=== PATIENT | female | born 1980 | race Caucasian/White ===

== ENCOUNTER 2018-03-21 08:37 | Inpatient (IN) ==
[2018-03-21] MEDS ORDERED: CeFAZolin Syr 2,000MG/20 ML 2,000 MG/20 ML SYRINGE IVPB ONE (08:53)
[2018-03-21] MEDS ORDERED: Albuterol 2.5 MG/3 ML NEBULIZER IH ONE (08:53)
[2018-03-21] MEDS ORDERED: Ringers Solution, Lactated 1,000 ML IVC SCH (09:00)
[2018-03-21] MEDS ORDERED: Famotidine 20 MG/2 ML VIAL IVP ONE (09:04)
[2018-03-21] MEDS ORDERED: Celecoxib 100 MG CAPSULE PO ONE (09:05)
[2018-03-21] MEDS ORDERED: Acetaminophen IV 1,000 MG/100 ML INFUS..BTL IVPB ONE (09:05)
[2018-03-21] MEDS ORDERED: *HR* Midazolam HCl 2 MG/2 ML VIAL ONE (09:21)
[2018-03-21] MEDS ORDERED: *HR* FentaNYL (PF) 100 MCG/2 ML VIAL ONE ×2 (09:21→11:22)
[2018-03-21] MEDS ORDERED: *HR* Propofol 200 MG/20 ML VIAL IVP ONE (09:22)
--- NOTE | 2018-03-21 09:32 | Anesthesia Evaluation PreOp ---
Date of Encounter: 03/21/18 Time of Encounter: 09:30 - Past History Planned Operation: ALEC Open Cardiac History: HTN, Hyperlipidemia, Other (Bicuspid Valve with mild-moderate aortic Stenosis, no regurge) Pulmonary History: Smoker CURRICULUM ASSISTANT History: Denies Any Significant HX Other Medical History: GERD Anesthesia History: No Prior Anesthetic Complications, Past Anesthesia (C- Section under SAB, no problems) : No Test: Negative Alcohol Use: occasionally Drug use: marijuana Medications and Allergies Cetirizine HCl [Cetirizine HCl] 10 mg PO DAILY 03/21/18 [History] Ibuprofen [Ibu-200] 200 mg PO Q8H PRN 03/21/18 [History] Lisinopril [Zestril] 10 mg PO DAILY 03/21/18 [History] Multivitamin [One Daily Essential] 1 tab PO DAILY 03/21/18 [History] OLANZapine [Zyprexa] 2.5 mg PO DAILY 03/21/18 [History] Omeprazole [PriLOSEC] 20 mg PO DAILY 03/21/18 [History] Venlafaxine XR (24 HR) [Effexor Xr] 37.5 mg PO DAILY 03/21/18 [History] 3 Allergy/AdvReac Type Severity Reaction Status Date / Time No Known Allergies Allergy Verified 03/21/18 09:00 - Meds/Allergy Pre-op Review Medications Reviewed: Yes Allergies Reviewed: Yes Beta Blockers on Current Med List: No Anesthesia Results - Labs Laboratory Tests 03/14/18 03/14/18 03/14/18 16:34 16:34 16:34 Hgb 13.6 Hct 39.2 Plt Count 267 PT 11.8 INR 1.0 APTT 32.0 Sodium 136 Potassium 3.7 BUN 15 Creatinine 0.86 Serum , Qual 03/14/18 16:34 Hgb Hct Plt Count PT INR APTT Sodium Potassium BUN Creatinine Serum , Qual Negative - Imaging EKG: report reviewed (SR, incomplete Rt BBB) Anesthesia Exam O2 Sat Height 1.65 m Height 1.65 m Height 1.65 m Weight 76.657 kg Weight 76.657 kg Weight 76.657 kg O2 Sat by Pulse Oximetry 97 O2 Sat by Pulse Oximetry 97 Vital Signs Temp Pulse Resp BP Pulse Ox 98.5 F 78 18 123/85 97 03/21/18 08:56 03/21/18 08:56 03/21/18 08:56 03/21/18 08:56 03/21/18 08:56 Height: 5'5 Weight: 169 lbs NPO (# of Hours): MN - HEENT Pupil (Motor): Pupils equal, EOMI Mallampati: II Teeth: Normal Oral Opening: Greater than 3 - CURRICULUM ASSISTANT LOC: Oriented CURRICULUM ASSISTANT Motor: Normal RUE, Normal LUE, Normal RLE, Normal LLE, Normal Face CURRICULUM ASSISTANT Sensory: Normal: RUE, LUE, RLE, LLE, Face - Cardiac Rhythm: Regular Murmur: None JVD: No Carotid Bruit: No - Pulmonary Breath Sounds: bilateral Clear Respiratory Effort: Symmetrical Anesthesia Assess/Plan ASA Score: 2 Modified Charlotte Scale for Level of Consciousness: Cooperative, oriented, and tranquil Anesthetic Plan: General, Regional Monitoring Plan: Standard Monitors Recovery Plan: PACU (Discussed GA, Duramorph Spinal, agrees to proceed)
[2018-03-21] MEDS ORDERED: *HR* Promethazine 25 MG/ML VIAL IVP PRN (09:40)
[2018-03-21] MEDS ORDERED: Dexamethasone 4 MG/ML VIAL IVP ONE (09:40)
[2018-03-21] MEDS ORDERED: Ondansetron 4 MG/2 ML VIAL IVP ONE (09:40)
[2018-03-21] MEDS ORDERED: *HR* Labetalol 20 MG/4 ML SYRINGE IVP PRN (09:40)
[2018-03-21] MEDS ORDERED: Lidocaine -MPF 2% 2 ML VIAL ONE (09:42)
[2018-03-21] MEDS ORDERED: *HR* Rocuronium Bromide 50 MG/5 ML VIAL ONE (09:42)
[2018-03-21] MEDS ORDERED: *HR* Belladonna Alkaloids/Opium 30 MG RECTAL SUPPOSITORY RC ONE (10:33)
[2018-03-21] MEDS ORDERED: Bupivacaine/EPI 1:200k 0.25%PF 30 ML VIAL ONE (10:33)
[2018-03-21] MEDS ORDERED: Morphine Sulfate/PF 5mg/10mL Vial ONE (10:34)
[2018-03-21] MEDS ORDERED: Bupivacaine-MPF 0.25% 10 ML VIAL ONE (10:35)
--- NOTE | 2018-03-21 10:35 | History & Physical Report ---
Date of Encounter: 03/21/18 Time of Encounter: 10:33 24 Hour HP Update - Instructions Instructions: If the History and Physical is less than 30 days old and was completed prior to A.M. admission and or procedure and has NOT been updated on calendar day of procedure please complete this update prior to performing procedure. - Update Patient reports changes in Medical Condition: No Changes in examination, assessment, or condition: No Changes in Medication: No Preop tests/diagnostics Reviewed: Yes Surgery Remains Indicated: Yes Consent for Planned Operative Procedure(s) Verified: Yes - Pre-Operative Checklist Preoperative Checklist Indicated: Yes Prophylactic Antibiotic Ordered: Yes Home Medications Include Beta Rei: No Beta Rei Taken Today (Day of Surgery): No Beta Rei Taken Yesterday (Day Prior to Surgery): No Is VTE Prophylaxis Indicated?: Yes - Attending Attestation ese yates md facog
[2018-03-21] MEDS ORDERED: Lidocaine -MPF 1% 5 ML AMPUL ONE (11:21)
[2018-03-21] MEDS ORDERED: Naloxone 0.4 MG/ML INJ IVP PRN ×2 (11:25→13:16)
--- NOTE | 2018-03-21 11:25 | Anesthesia Procedures ---
Date of Encounter: 03/21/18 Time of Encounter: 09:30 Procedures: Anesthesia - Epidural/Spinal Patient ID/Chart reviewed: Yes Patient examined: Yes Supplemental Oxygen: None/Room Air Sedation: Versed (mg): 2 Site Prep: Aseptic Technique, Sterile prep and drape Patient position: upright Local Anesthetic: Lidocaine 1% Interspace Used: L4-L5 Blood: No CSF: Yes Paresthesia: No Spinal Needle Gauge: 24 Spinal Dose: Duramorph 250 micrograms Procedure: Pateint sitting, midline, tolerated procedure well Vitals + FHT's: Vital Signs/O2 Sat/Glucose, Most Current Temp Pulse Resp BP Pulse Ox 03/21/18 09:13 18 97 03/21/18 08:56 98.5 F 78 18 123/85 97
[2018-03-21] MEDS ORDERED: *HR* HYDROmorphone (PF) 1 MG/ML SYRINGE ONE (11:51)
[2018-03-21] MEDS ORDERED: Neostigmine Methylsulfate 3 MG/3 ML SYRINGE ONE (12:06)
--- NOTE | 2018-03-21 12:24 | OB/GYN Procedure Note ---
Hysterectomy - Diagnosis Date of procedure: 03/21/18 Hysterectomy pre-op: abnormal uterine bleeding, symptomatic leiomyomata Post-op diagnosis: same - Procedure Hysterectomy procedure: total abdominal hysterectomy, bilateral salpingectomy Surgeon: Kaz Zepeda Was there an hotel assistant manager present: Yes Template Worker: Fallon Duran Anesthesia provider: Mal Shrestha Anesthesia Type: General (Intrathecal) Estimated blood loss (cc): 100 Complications: none Urine output (cc): 300 Specimens: uterus, cervix, right fallopian tube, left fallopian tube Findings: Tubes were consistent with previous tubal sterilization. Ovaries appeared be normal. There is a fundal fibroid noted. Disposition: PACU Narrative: Patient taken to operating room. After satisfactory anesthesia was achieved, patient placed in supine position Jaime catheter inserted and prepped and draped in usual manner. After appropriate timeout was obtained, the abdomen was entered through standard Maylard incision. The Mayela retractor was placed. Uterus grasped on either side with Wes clamps. Fallopian tubes were resected and sent to pathology for analysis. Mesovarium ligaments coagulated on both sides and cut round ligaments coagulated on both sides and cut bladder flap was created anteriorly with sharp and blunt dissection. Uterine arteries were coagulated both sides and cut. Cardinal ligament pedicles were coagulated both sides and cut. Uterosacral ligaments were clamped cut suture-ligated with 0 Monocryl. The vagina was entered posteriorly. Cervix and uterus were resected and sent to pathology for analysis. Cuff was closed with 0 Monocryl. After assurance of hemostasis, peritoneum was reapproximated over the cuff with a 0 Monocryl. The ovaries were suspended to the round ligament on either side with 0 Vicryl. After assurance hemostasis, the packs and retractor was removed. The abdomen was closed standard fashion using 0 Vicryl on the fascia and 3-0 Monocryl in the skin. Sterile dressing was applied. Jaime catheter was removed. Patient did well was taken to recovery in satisfactory condition. Counts were correct.
[2018-03-21] MEDS: *HR* HYDROmorphone (PF) 1 MG/ML SYRINGE IVP PRN ×2 (12:50→13:03)
[2018-03-21] MEDS ORDERED: Ondansetron 4 MG/2 ML VIAL IVP PRN (13:16)
[2018-03-21] MEDS ORDERED: Sennosides 8.6 MG TABLET PO PRN (13:16)
--- NOTE | 2018-03-21 13:27 | Anesthesia Evaluation Post Op ---
Date of Encounter: 03/21/18 Time of Encounter: 13:26 - Vital Signs Vital Signs: Vital Signs/O2 Sat, Most Current Temp Pulse Resp BP Pulse Ox 98.6 F 60 16 137/93 96 03/21/18 13:14 03/21/18 13:14 03/21/18 13:14 03/21/18 13:14 03/21/18 13:14 - Lungs Lungs: Clear Ascult./Percussion - Airway Airway: Non-obstructed - Cardiovascular Regular Rate - Mental Status Mental Status: Asleep with brisk response to light stimulation - Pain Pain Scale: 0 Pain Scale used: Numeric (1 - 10) - Nausea Vomiting Nausea Vomiting: Not Present - Hydration Hydration: NPO, Has not voided - Discharge PostOp Status: Transfer Patient to floor
[2018-03-21] MEDS ORDERED: Acetaminophen IV 1,000 MG/100 ML INFUS..BTL IVPB SCH (18:00)
[2018-03-21] MEDS: *HR* OxyCODONE/APAP 5/325 TABLET PO PRN (19:36)
[2018-03-22] MEDS: *HR* OxyCODONE/APAP 5/325 TABLET PO PRN ×3 (00:02→08:15)
[2018-03-22 05:58] LABS: Basophils # 0.1 K/mcL (0.0-0.2); Basophils % 0.3 %; Eosinophils % 0.1 %; Hematocrit 34.6 % (35.3-44.9); Hemoglobin 11.8 g/dL (11.5-15.4); Immature Granulocytes % 0.4 % (0-4); Lymphocytes # 2.8 K/mcL (0.6-4.6); Mean Corpuscular HGB Conc 34.1 g/dL (31.6-35.5); Mean Platelet Volume 10.1 fL (9.4-12.4); Monocytes # 1.2 K/mcL (0.0-1.3); Monocytes % 7.1 %; Neutrophils # 13.3 K/mcL (1.6-8.9); Platelet Count 249 K/mcL (140-400); Red Blood Count 3.93 M/mcL (3.82-4.97); Red Cell Distribution Width 12.5 % (11.5-14.5); Segmented Neutrophils % 76.1 %
[2018-03-22 06:16] LABS: eGFR For Non-African Americans > 60 (> 60)
[2018-03-22 07:26] VITALS: BP 107/70
[2018-03-22] MEDS ORDERED: Loratadine 10 MG TABLET PO SCH (09:00)
[2018-03-22] MEDS ORDERED: OLANZapine 5 MG TAB.RAPDIS PO SCH (09:00)
[2018-03-22] MEDS ORDERED: Venlafaxine XR (24 HR) 37.5 MG CAP.ER.24H PO SCH (09:00)
--- NOTE | 2018-03-22 09:28 | Discharge Summary ---
Date of Encounter: 03/22/18 Time of Encounter: 09:27 - Discharge Diagnosis (1) Fibroid uterus Priority: Primary Status: Resolved Qualifiers: Uterine leiomyoma location: intramural Qualified Code(s): D25.1 - Intramural leiomyoma of uterus (2) Uterus, adenomyosis Priority: Secondary Status: Resolved (3) Post-op pain Priority: Secondary Status: Acute - Discharge Medications Prescriptions: OxyCODONE/APAP 5/325 [Percocet 5/325 MG] 1 each PO Q4HR PRN 7 Days #28 tablet PRN Reason: Severe Pain (7-10) Home Medications: Cetirizine HCl [Cetirizine HCl] 10 mg PO DAILY 03/21/18 [History] Ibuprofen [Ibu-200] 200 mg PO Q8H PRN 03/21/18 [History] Lisinopril [Zestril] 10 mg PO DAILY 03/21/18 [History] Multivitamin [One Daily Essential] 1 tab PO DAILY 03/21/18 [History] OLANZapine [Zyprexa] 2.5 mg PO DAILY 03/21/18 [History] Omeprazole [PriLOSEC] 20 mg PO DAILY 03/21/18 [History] Venlafaxine XR (24 HR) [Effexor Xr] 37.5 mg PO DAILY 03/21/18 [History] OxyCODONE/APAP 5/325 [Percocet 5/325 MG] 1 each PO Q4HR PRN 7 Days #28 tablet [Rx] Allergies/Adverse Reactions: 3 Allergy/AdvReac Type Severity Reaction Status Date / Time No Known Allergies Allergy Verified 03/21/18 09:00 Data Procedures and tests throughout hospitalization: Laboratory Tests 03/22/18 03/22/18 05:43 05:43 WBC 17.4 H RBC 3.93 Hgb 11.8 Hct 34.6 L MCV 88.0 MCH 30.0 MCHC 34.1 RDW 12.5 Plt Count 249 MPV 10.1 Immature Gran % 0.4 Seg Neutrophils % 76.1 Lymphocytes % 16.0 Monocytes % 7.1 Eosinophils % 0.1 Basophils % 0.3 Neutrophils # 13.3 H Lymphocytes # 2.8 Monocytes # 1.2 Eosinophils # 0.0 Basophils # 0.1 Creatinine 0.74 Est GFR ( Amer) > 60 Est GFR (Non-Af Amer) > 60 Labs on day of discharge: Labs from last 24 hours 03/22/18 03/22/18 05:43 05:43 WBC 17.4 H RBC 3.93 Hgb 11.8 Hct 34.6 L MCV 88.0 MCH 30.0 MCHC 34.1 RDW 12.5 Plt Count 249 MPV 10.1 Immature Gran % 0.4 Seg Neutrophils % 76.1 Lymphocytes % 16.0 Monocytes % 7.1 Eosinophils % 0.1 Basophils % 0.3 Neutrophils # 13.3 H Lymphocytes # 2.8 Monocytes # 1.2 Eosinophils # 0.0 Basophils # 0.1 Creatinine 0.74 Est GFR ( Amer) > 60 Est GFR (Non-Af Amer) > 60 Date of admission: 03/21/18 13:15 Primary care physician: Chemo Kearns - Patient Status Disposition: Home, Self-Care Condition: Good Functional capacity at discharge: independent ambulation Overall status at discharge: patient is progressing back to baseline - Discharge Instructions Follow Up With: Chemo Kearns, [Primary Care Provider] - - Diet and Activity Activity: increase activity as tolerated Diet: advance to your usual diet Hospital [employer] Time Attestation: Total time spent providing and/or coordinating discharge services: Exam - Constitutional Vitals: Temp Pulse Resp BP Pulse Ox 98.0 F 68 14 107/70 97 03/22/18 07:10 03/22/18 07:10 03/22/18 07:10 03/22/18 07:10 03/22/18 07:10 General appearance IM: A&O X 3 - Respiratory Respiratory exam: Present: CTAB - Cardiovascular Cardiovascular exam IM: Present: RRR - GI/Abdominal GI/Abdominal exam IM: diminished bowel sounds, soft Incision: normal, dry, intact - Extremities Exam Extremities exam IM: Present: full ROM - Neurological Exam Neurological exam: CN II-XII intact - VTE Documentation of Mechanical Device: Graduated compression elastic hosiery - Attending Attestation ese yates md facog
== END 2018-03-22 11:00 | disposition home or self-care (01) | DRG 519 ==
LOC: SAMDAY 08:37 → 1NENUOBS 13:15
PROVIDERS: ADMIT Obstetrics & Gynecology; ATTEND Obstetrics & Gynecology